=== PATIENT | female | born 1980 | race Caucasian/White ===

== ENCOUNTER 2017-09-18 13:32 | Emergency (ER) | payer OTHER ==
[2017-09-18] MEDS ORDERED: ALPRAZolam 0.25 MG TABLET PO ONE (14:00)
--- NOTE | 2017-09-18 14:20 | RAD ---
Portable chest, 09/18/2017: History: Chest pain, anxiety attack The heart size and pulmonary vascularity are normal. No pulmonary infiltrates are seen. There is no evidence of pleural fluid. IMPRESSION: No acute cardiopulmonary abnormality is detected.
--- NOTE | 2017-09-18 14:30 | PHYS DOC ---
General Chief Complaint: ANXIETY/PANIC ATTACK Stated Complaint: ANXIETY Time Seen by MD: 13:39 Source: patient, EMS Exam Limitations: no limitations Problems: History of Present Illness Initial Comments Patient is a 37-year-old female brought to the ED by EMS with shortness of breath and possible panic attack. Patient states that she awoke this morning not feeling well, she says that she has had increased stressors recently and has had panic attacks in the past not as severe as today's. She says that throughout the course of the morning she had progressively increasing dyspnea with chest tightness, a feeling of dread, and tingling and spasms at her bilateral hands and feet with lip numbness and tingling. EMS reports on their arrival the patient was breathing 35 times per minute and tachycardic she was brought for evaluation. On arrival I initiated chest pain workup as well as Xanax 0.5 mg by mouth, was delayed getting into the room to evaluate her due to extremely high ED volume. On my evaluation patient had artery receive Xanax her heart rate had normalized to 70 bpm when I entered the room and she stated that her symptoms have resolved completely. Timing/Duration: other Severity: severe Modifying Factors: improves with medication Associated Symptoms: chest pain, shortness of breath, other Allergies: Coded Allergies: No Known Drug Allergies (Unverified , 09/18/17) Past Medical History Medical History: other (anxiety, dilated cardiomyopathy) Surgical History: other Social History Smoker: non-smoker Alcohol: none Drugs: none Review of Systems Constitutional: denies chills, denies diaphoresis, denies fever, denies malaise Respiratory: see HPI Cardiovascular: see HPI Gastrointestinal: denies abdominal pain, denies nausea, denies vomiting Musculoskeletal: denies back pain, denies joint swelling, denies neck pain Psychiatric/Neurological: see HPI Physical Exam General Appearance: WD/WN, moderate distress Eyes: bilateral eye normal inspection, bilateral eye PERRL, bilateral eye EOMI Ear, Nose, Throat: hearing grossly normal, normal ENT inspection, normal pharynx Neck: non-tender, supple Respiratory: normal breath sounds, no respiratory distress Cardiovascular: normal peripheral pulses, tachycardia Gastrointestinal: non tender, soft Back: no CVA tenderness, no vertebral tenderness Extremities: non-tender, normal inspection Neurologic/Psychiatric: production foreman II-XII nml as tested, no motor/sensory deficits, alert, oriented x 3, other (anxious) Orders, Labs, Meds EKG: Normal sinus rhythm [address] segment elevation interpreted by me. PATIENT: SUPRIYA MENDOZA ACCOUNT: [id number] : 1980 LOCATION: ER AGE: 37 SEX: F EXAM STATUS: REG ER ORD. PHYSICIAN: CAN ROTHMAN DO REASON: cp PROCEDURE: PORTABLE CHEST 1V Portable chest, 09/18/2017: History: Chest pain, anxiety attack The heart size and pulmonary vascularity are normal. No pulmonary infiltrates are seen. There is no evidence of pleural fluid. IMPRESSION: No acute cardiopulmonary abnormality is detected. DICTATED AND SIGNED BY: GEOFF DAHL MD DATE: 09/03 Patient rechecked 20 minutes after receiving Xanax, she reports her symptoms have resolved completely. Her heart rate was normalized to 70 bpm and she is completely asymptomatic and requesting discharge home. Her ED course is been very reassuring and her symptoms are consistent with panic attack. I discussed signs and symptoms to monitor as well as indications for urgent return to the department. At this point no emergent condition appears to be present and I feel the patient is stable for discharge home. I discussed elevated creatine kinase of the need to have it rechecked. Her questions were answered she was advised to follow-up with her doctor and she expressed agreement and understanding of treatment plan. She was advised to discontinue substance abuse. Departure Time of Disposition: 15:08 Disposition: 01 HOME, SELF-CARE Diagnosis: panic attack, elevated creatine kinase, marijuana Condition: IMPROVED Patient Instructions: Anxiety and Panic Attacks, [id number], Creatine Kinase (CK), Marijuana Abuse-Brief Additional Instructions: Please review the patient education materials given by ED staff. Discontinue marijuana abuse, seek medical assistance if necessary. Substance abuse can contribute to/cause worsening of underlying psychiatric issues such as anxiety. Aggressive hydration with Gatorade or water. As discussed you have requested discharge home, inpatient admission has been offered to you for further evaluation. Follow-up with your doctor in 1-2 days for recheck of current symptoms as well as to recheck your creatine kinase. Return to ED as needed CAN ROTHMAN DO Sep 18, 2017 14:30
[2017-09-18 14:31] LABS: BASO # 0.1 x10^3/uL (0.0-0.2); BASO % 1 % (0-3); EOS # 0.5 x10^3/uL (0.0-0.7); EOS % 4 % (0-3); HEMOGLOBIN 15.1 g/dL (12.0-15.5); LYMPH # 2.6 x10^3/uL (1.0-4.8); LYMPH % 22 % (24-48); MEAN CORPUSCULAR HEMOGLOBIN 31 pg (25-35); MEAN CORPUSCULAR HGB CONC 34 g/dL (31-37); MEAN CORPUSCULAR VOLUME 90 fL (79-100); MONO # 0.7 x10^3/uL (0.0-1.1); MONO % 6 % (0-9); NEUT # 8.1 x10^3uL (1.8-7.7); NEUT % 68 % (31-73); PLATELET COUNT 310 x10^3/uL (140-400); RED CELL DISTRIBUTION WIDTH 13.6 % (11.5-14.5)
[2017-09-18 14:43] LABS: AMPHETAMINE/METHAMPHETAMINE NEG (NEG); BARBITURATES NEG (NEG); BENZODIAZEPINES NEG (NEG); CANNABINOIDS POS (NEG); COCAINE NEG (NEG); METHADONE NEG (NEG); OPIATES NEG (NEG); PHENCYCLIDINE NEG (NEG)
[2017-09-18 14:43] LABS: ALBUMIN 4.3 g/dL (3.4-5.0); ALBUMIN/GLOBULIN RATIO 1.2 (1.0-1.7); CALCIUM 9.2 mg/dL (8.5-10.1); GFR 63.1; POTASSIUM 3.7 mmol/L (3.5-5.1); TOTAL BILIRUBIN 0.5 mg/dL (0.2-1.0); TOTAL PROTEIN 7.9 g/dL (6.4-8.2)
[2017-09-18 14:47] LABS: AMORPHOUS SEDIMENT,UR PRESENT /HPF; BACTERIA,URINE 0 /HPF (0-FEW); BILIRUBIN,URINE NEG (NEG); CLARITY,URINE CLEAR; COLOR,URINE YELLOW; GLUCOSE,URINE NEG (NEG); NITRITE,URINE NEG (NEG); RBC,URINE OCC /HPF (0-2); SQUAMOUS EPITHELIAL CELL,UR OCC /LPF; UROBILINOGEN,URINE 0.2 mg/dL (0.2 mg/dL); WBC,URINE OCC /HPF (0-4)
[2017-09-18 15:33] VITALS: BP 113/67
--- NOTE | 2017-09-18 23:48 | EKG ---
[address] [address] Test Date: 2017-09-18 Test Time: 14:13:44 Pat Name: SUPRIYA MENDOZA Department: Room: Gender: F Health Care Law Specialist: YULIYA : 1980 Requested By: CAN ORTHMAN Order Number: [id number] Reading MD: Waqas Hernandez MD Measurements Intervals [place] Rate: 79 P: 0 MI: 132 QRS: 52 QRSD: 88 T: 31 QT: 372 QTc: 433 Interpretive Statements SINUS RHYTHM Electronically Signed On 09-20-2017 9:55:19 GEOPHYSICAL SUPPORT SPECIALIST by Waqas Hernandez MD
== END 2017-09-18 15:33 | disposition home or self-care (01) ==
LOC: ER 13:32
DX: F41.0 Panic disorder [episodic paroxysmal anxiety] (principal); R74.8 Abnormal levels of other serum enzymes; F12.10 Cannabis abuse, uncomplicated; I42.0 Dilated cardiomyopathy
CPT/HCPCS: 36415; 71045; 80053; 80307; 81001; 81025; 82550; 84484; 85025; 85379; 93005; 99285-25; G0479